=== PATIENT | male | born 1945 | race Caucasian/White ===

== ENCOUNTER → 2016-07-04 12:44 | Outpatient (CLI) | payer MEDICARE, BC | END | disposition home or self-care (01) | LOC: D.MRI 06-29 16:30 | DX: M25.561 Pain in right knee (principal) ==

== ENCOUNTER 2016-08-23 05:44 | Day surgery (SDC) | payer MEDICARE, BC ==
[2016-08-22 14:22] LABS: HEMATOCRIT 40.3 % (42.0-54.0); MCH 31.3 pg (26.0-34.0); MCHC 34.7 g/dL (31.0-37.0); MCV 90.2 fL (80.0-100.0); MEAN PLATELET VOLUME 9.6 fL (7.4-10.4); RBC 4.47 10x6/uL (4.20-6.10); RDW 12.8 % (11.5-14.5); WBC 5.9 10x3/uL (4.8-10.8)
[2016-08-22 15:07] LABS: ANION GAP 12.9 mmol/L (8-16); CALCIUM 8.3 mg/dL (8.5-10.1); CARBON DIOXIDE 27.3 mmol/L (21.0-32.0); CREATININE - SERUM 1.7 mg/dL (0.6-1.3); POTASSIUM - SERUM 4.2 mmol/L (3.5-5.1)
[~2016-08-23] VITALS: Ht 188 cm; Wt 111.1 kg
[~2016-08-23 05:44] MED LIST: ASPIRIN325 MG PO; FORTAMET500 MG/BOT PO; GLIMEPIRIDE2 MG PO; LIPITOR40 MG PO; NOVOLIN 70/30 110 ML SC; OMEGA 3 FISH OI1 CAP PO; OMEPRAZOLE40 MG PO; TRAZODONE HCL50 MG PO; XALATAN 0.0052.5 ML EACH EYE
[2016-08-23] MEDS ORDERED: COZAAR100 MG PO (07:50)
[2016-08-23] MEDS ORDERED: TIMOPTIC 0.5 % O5 ML EACH EYE (07:50)
[2016-08-23 07:51] VITALS: BP 137/72; Ht 188 cm; Wt 111.1 kg
[2016-08-23] MEDS ORDERED: HYDROCODONE-APA1 TAB PO (10:55)
--- NOTE | 2016-08-23 14:55 | NUR ---
1230 IV DC WITH CATHER TIP INTACT
--- NOTE | 2016-08-24 13:39 | OP ---
PATIENT NAME: VITALIY BUTT MEDICAL RECORD: [id number] :47 LOCATION:D[facility] ADMISSION DATE: SURGEON: SENA RUBIO MD DATE OF OPERATION: 08/23/2016 Orthopedic Surgery Operative Note PREOPERATIVE DIAGNOSIS: Medial meniscus tear of the right knee. POSTOPERATIVE DIAGNOSIS: Medial meniscus tear of the right knee. PROCEDURE: Arthroscopic partial medial meniscectomy of the right knee. SURGEON: Sena Rubio MD. ANESTHESIA: General. INTRAOPERATIVE COMPLICATIONS: None. SUMMARY OF PATHOLOGIC FINDINGS: The patient had a complex tear of the posterior horn of the medial meniscus. OPERATIVE SUMMARY IN DETAIL: After obtaining the appropriate preoperative orthopedic surgery consents as well as anesthetic consultation, evaluation and clearance, the patient was brought to the operating room and placed on the operating table in supine position. After general laryngeal mask was administered, tourniquet was placed about the proximal aspect of the right lower extremity. Right lower extremity was prepped and draped in routine sterile fashion. The leg was elevated and exsanguinated, tourniquet inflated to 350 mmHg. Routine inferolateral portal was established followed by superomedial portal and inferomedial portal. Diagnostic arthroscopy did reveal the patient to have a complex tear of the posterior horn of medial meniscus. Combination of an arthroscopic resector as well as meniscotome was utilized to debride the meniscus back to stable meniscal elements. 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 Having completed this, the lateral compartment was examined and found to be pristine. The knee was insufflated with 30 cc of 0.25% Marcaine with epinephrine and 40 mg of Depo-Medrol. Arthroscopy portals were closed in routine interrupted fashion using 4-0 Prolene. Sterile dressings were applied. The tourniquet was deflated. The patient was awakened and taken to the recovery room in stable condition. All final needle and sponge counts were correct. TRANSINT:[id number] Voice Confirmation ID: [id number] DOCUMENT ID: [id number] SENA RUBIO MD at 1339 CC: [id number] DICTATION DATE: 08/23/16 1057 SURVEY STATISTICIAN: 08/23/16 1816 [facility] 08/23/16 [place] [address]
== END 2016-08-23 12:45 | disposition home or self-care (01) ==
LOC: D.OPS 05:44 → D.PAN 08:30 → D.OPS 10:00
PROVIDERS: Anesthesiology
DX: S83.241A Other tear of medial meniscus, current injury, right knee, initial encounter (principal); I10 Essential (primary) hypertension; E11.9 Type 2 diabetes mellitus without complications; K21.9 Gastro-esophageal reflux disease without esophagitis; Z01.812 Encounter for preprocedural laboratory examination

== ENCOUNTER → 2016-12-13 06:35 | Outpatient (CLI) | payer MEDICARE, BC ==
[~2016-12-13] VITALS: Ht 188 cm; Wt 109.1 kg
[2016-12-13 06:33] VITALS: BP 143/83; Ht 188 cm; Wt 109.1 kg
[~2016-12-13 06:35] MED LIST changes: +BENTYL10 MG PO; +BRILINTA90 MG PO; +COZAAR100 MG PO; +HYDROCODONE-APA1 TAB PO; +TIMOPTIC 0.5 % O5 ML EACH EYE
== END | disposition home or self-care (01) ==
LOC: D.CATH 06:35
DX: I25.119 Atherosclerotic heart disease of native coronary artery with unspecified angina pectoris (principal); I10 Essential (primary) hypertension; E11.9 Type 2 diabetes mellitus without complications; Z01.812 Encounter for preprocedural laboratory examination; Z79.4 Long term (current) use of insulin

== ENCOUNTER → 2017-01-28 10:00 | Outpatient (CLI) | payer MEDICARE, BC ==
[2016-12-13 06:33] VITALS: BMI 30.8
[~2017-01-28 10:00] MED LIST changes: +DILAUDID2 MG PO; +GLUCOPHAGE500 MG PO; +MOBIC7.5 MG PO
== END | disposition home or self-care (01) ==
LOC: D.MRI 10:00
DX: M25.512 Pain in left shoulder (principal); M75.42 Impingement syndrome of left shoulder

== ENCOUNTER → 2017-03-28 17:45 | Outpatient (CLI) | payer MEDICARE, BC ==
[2016-12-13 06:33] VITALS: BMI 30.8
[2017-03-28 18:34] LABS: CHOL - HDL RATIO 7.1 ratio (2.3-4.9); LDL-HDL RATIO 5.2 ratio (1.5-3.5)
== END | disposition home or self-care (01) ==
LOC: D.LABREF 17:45
PROVIDERS: Internal Medicine Cardiovascular Disease
DX: I25.10 Atherosclerotic heart disease of native coronary artery without angina pectoris (principal)

== ENCOUNTER 2017-04-01 06:20 | Day surgery (SDC) | payer MEDICARE, BC ==
[2017-03-29 09:26] LABS: HEMATOCRIT 39.1 % (42.0-54.0); HEMOGLOBIN 13.3 g/dL (13.5-17.5); MCH 29.6 pg (26.0-34.0); MCV 87.1 fL (80.0-100.0); MEAN PLATELET VOLUME 8.8 fL (7.4-10.4); RBC 4.49 10x6/uL (4.20-6.10); RDW 12.9 % (11.5-14.5); WBC 9.6 10x3/uL (4.8-10.8)
[2017-03-29 09:31] LABS: ANION GAP 10.9 mmol/L (8-16); CALCIUM 8.8 mg/dL (8.5-10.1); CREATININE - SERUM 1.3 mg/dL (0.6-1.3); POTASSIUM - SERUM 4.9 mmol/L (3.5-5.1)
[~2017-04-01] VITALS: Ht 188 cm; Wt 103.4 kg
--- NOTE | ~2017-04-01 | OP ---
PATIENT NAME: VITALIY BUTT MEDICAL RECORD: [id number] :47 [facility] ADMISS[facility] DATE: SURGEON: JOANNE BETANCOURT, SENA DE LA CRUZ DATE OF OPERATION: 04/01/2017 PREOPERATIVE DIAGNOSES: 1. 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 2. Bilateral hip trochanteric bursitis. POSTOPERATIVE DIAGNOSES: 1. 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 2. Bilateral hip trochanteric bursitis. PROCEDURES: 1. Left shoulder arthroscopy with arthroscopic distal clavicle excision done through separate incision -- 1 cm. 2. Arthroscopic subacromial decompression with acromioplasty and bursectomy. 3. Bilateral hip injections. SURGEON: Sena Rubio MD ANESTHESIA: General. INTRAOPERATIVE COMPLICATIONS: None. SUMMARY OF PATHOLOGIC FINDINGS: The patient had severe impingement syndrome with attritional tearing of the rotator cuff, nonfull thickness. The patient also had severe acromioclavicular arthropathy. The patient had known preoperative bilateral hip bursitis. OPERATIVE SUMMARY IN DETAIL: After obtaining the appropriate preoperative orthopedic surgery consent as well as anesthetic consultation, evaluation and clearance, the patient was brought to the operating room and placed on the operating table in supine position. After adequate general laryngeal mask airway was administered, the patient was placed in a right lateral decubitus position. All pressure points were well padded to include down leg peroneal pad as well as axillary roll. The patient was held firmly to the operating table using the vacuum pack suction system. Left upper extremity and shoulder were then prepped and draped in routine sterile fashion. The arm was held in Arthrex traction boom at 30 degrees of forward flexion and 10 pounds of traction laterally. Arthroscopy was established in the glenohumeral joint from a posterior portal. Anterior portal was established in the anterior safe interval. Mild debridement of the labrum was then followed by establishing the arthroscopy in the subacromial space. Accessory lateral portal was created through which the [place] tissue ablation system was utilized to denude the undersurface of the acromion of all soft tissue elements. A 5-0 barrel bur was then used to perform acromioplasty at the level of the acromioclavicular joint. Through a separate arthroscopic anterior portal, distal clavicle was excised for 1 cm. Having completed this, rotator cuff tearing was gently debrided along with all subacromial bursa. Arthroscopy portals were then closed in routine interrupted fashion using 4-0 Prolene. Sterile dressings were applied. The patient was awakened and taken to the recovery room in stable condition. All final needle and sponge counts were correct. 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 04/01/17 [id number] [place] [address]
[2017-04-01 06:49] VITALS: BP 96/61; Ht 188 cm; Wt 103.4 kg
[2017-04-01] MEDS ORDERED: HYDROCODONE-APA1 TAB PO (10:41)
== END 2017-04-01 12:30 | disposition home or self-care (01) ==
LOC: D.OPS 06:20 → D.PAN 13:45 → D.OPS 13:45
PROVIDERS: Anesthesiology
DX: M75.42 Impingement syndrome of left shoulder (principal); M75.112 Incomplete rotator cuff tear or rupture of left shoulder, not specified as traumatic; M13.812 Other specified arthritis, left shoulder; M70.62 Trochanteric bursitis, left hip; M70.61 Trochanteric bursitis, right hip; Z01.812 Encounter for preprocedural laboratory examination

== ENCOUNTER → 2017-07-17 17:38 | Outpatient (CLI) | payer MEDICARE, BC ==
[2017-04-01 06:49] VITALS: BMI 29.3
== END | disposition home or self-care (01) ==
LOC: D.LABREF 17:38
PROVIDERS: Internal Medicine Cardiovascular Disease
DX: E78.5 Hyperlipidemia, unspecified (principal)